=== PATIENT | male | born 1955 | race African-American/Black ===

== ENCOUNTER 2016-12-31 11:41 | Emergency (ER) | payer OTHER ==
[~2016-12-31] VITALS: Ht 180.3 cm; Wt 136.1 kg
--- NOTE | 2016-12-31 11:49 | NUR ---
Patient transferred to bed 1 via wheelchair by malika, accompanied by family. RN evaluating patient at bedside.
[2016-12-31 11:51] VITALS: BP 145/90
[2016-12-31] MEDS ORDERED: NORCO 5/325 MG1 TAB PO (11:55)
--- NOTE | 2016-12-31 12:09 | NUR ---
61M BIB FAMILY C/O JOINT PAIN X LAST NIGHT; PT STATES HAS CHRONIC JOINT PAIN WITH HX OF RA. PT STATES RAN OUT OF [employer] YESTERDAY. PT C/O ACHING, SHARP, JOINT PAIN TO BL ELBOWS, WRIST, SHOULDER, NECK, 8/10 SINCE LAST NIGHT; A&OX4, BL LUNG SOUNDS CLEAR, RR EVEN/UNLABORED, SKIN IS WARM/DRY/INTACT AT THIS TIME; PT DENIES N/V/D AT THIS TIME; STEADY GAIT; PT RESTING IN BED W/ HOB ELEVATED AND IN LOWEST POSITION; POSITIONED FOR COMFORT; FAMILY AT BEDSIDE. ER MD MADE AWARE OF STATUS. WILL CONTINUE TO MONITOR.
[2016-12-31] MEDS ORDERED: KETOROLAC 30 MG/ML VIAL IM ONE (12:35)
[2016-12-31] MEDS ORDERED: DEXAMETHASONE 10 MG/ML VIAL IM ONE (12:35)
[2016-12-31] MEDS ORDERED: HYDROcodone/APAP 10/325 MG 1 TAB TAB PO ONE (13:15)
[2016-12-31 13:29] VITALS: BP 138/83
--- NOTE | 2016-12-31 13:29 | NUR ---
Patient discharged with v/s stable. Written and verbal after care instructions given and explained. Patient alert, oriented and verbalized understanding of instructions. Ambulatory with steady gait. All questions addressed prior to discharge. ID band removed. Patient advised to follow up with PMD. Rx of NORCO 5MG-325MG TAB given. Patient educated on indication of medication including possible reaction and side effects. Opportunity to ask questions provided and answered.
== END 2016-12-31 13:29 | disposition home or self-care (01) ==
LOC: MED 11:41
DX: M06.9 Rheumatoid arthritis, unspecified (principal); I13.0 Hypertensive heart and chronic kidney disease with heart failure and stage 1 through stage 4 chronic kidney disease, or unspecified chronic kidney disease; N18.9 Chronic kidney disease, unspecified; I50.9 Heart failure, unspecified; K21.9 Gastro-esophageal reflux disease without esophagitis; Z79.4 Long term (current) use of insulin
CPT/HCPCS: 82948; 96372; 99284; J1100; J1885